=== PATIENT | female | born 1985 | race Native Hawaiian/Other Pacific Islander ===

== ENCOUNTER 2023-03-04 21:00 | Emergency (ER) | payer OTHER ==
[~2023-03-04] VITALS: Ht 162.6 cm; Wt 77.1 kg
[2023-03-04 21:10] VITALS: TEMP 98.6
[2023-03-04 23:10] VITALS: BP 112/60
== END 2023-03-04 23:10 | disposition home or self-care (01) ==
LOC: ED 21:00
DX: S93.401A Sprain of unspecified ligament of right ankle, initial encounter (principal); S90.01XA Contusion of right ankle, initial encounter; X58.XXXA Exposure to other specified factors, initial encounter
CPT/HCPCS: 81025; 99283